=== PATIENT | male | born 2000 | race Caucasian/White ===

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

== ENCOUNTER 2020-09-05 14:34 | Emergency (ER) | payer SELFPAY ==
[~2020-09-05] VITALS: Ht 180.3 cm; Wt 120.5 kg
[~2020-09-05 14:34] MED LIST: DIOVAN 40MG40 MG PO; DIOVAN HCT 12.51 TA2 PO
[2020-09-05 14:44] VITALS: TEMP 97.8
[2020-09-05] MEDS ORDERED: PROAIR HFA0.09 MG/AC IH (16:05)
[2020-09-05] MEDS ORDERED: ZITHROMAX Z PA250 MG PO (16:05)
[2020-09-05] MEDS ORDERED: PREDNISONE20 MG PO (16:05)
[2020-09-05 16:13] VITALS: BP 125/79; PULSE 80
== END 2020-09-05 16:16 | disposition home or self-care (01) ==
LOC: COL.ER 14:34
DX: J45.909 Unspecified asthma, uncomplicated (principal)

== ENCOUNTER 2021-03-31 20:38 | Emergency (ER) | payer BC ==
[~2021-03-31] VITALS: Ht 177.8 cm; Wt 122.7 kg
[~2021-03-31 20:38] MED LIST changes: +PREDNISONE20 MG PO; +PROAIR HFA0.09 MG/AC IH; +ZITHROMAX Z PA250 MG PO
[2021-03-31 21:00] VITALS: BP 156/70; PULSE 118; TEMP 100.4
[2021-03-31 22:25] LABS: STREP SCREEN NEGATIVE
== END 2021-03-31 21:00 | disposition home or self-care (01) ==
LOC: COL.ER 20:38
PROVIDERS: Emergency Medicine
DX: R50.9 Fever, unspecified (principal); R00.0 Tachycardia, unspecified; Z20.822 Contact with and (suspected) exposure to COVID-19